=== PATIENT | female | born 1985 | race African-American/Black ===

== ENCOUNTER → 2017-01-09 | Outpatient (CLI) | payer BC ==
[2017-01-09 09:34] LABS: CLARITY URINE CLEAR (CLEAR); COLOR URINE YELLOW (YELLOW); GLUCOSE URINE NEGATIVE (NEGATIVE); KETONES URINE NEGATIVE (NEGATIVE); LEUKOCYTE ESTERASE URINE NEGATIVE (NEGATIVE); NITRITE URINE NEGATIVE (NEGATIVE); OCCULT BLOOD URINE NEGATIVE (NEGATIVE); PROTEIN URINE NEGATIVE (NEGATIVE); SPECIFIC GRAVITY URINE 1.019 (1.005-1.030); UROBILINOGEN URINE 0.2 E.U./dL (0.2-1.0)
== END | disposition home or self-care (01) ==
LOC: LAB 09:12
PROVIDERS: ATTEND Internal Medicine Geriatric Medicine
DX: N39.0 Urinary tract infection, site not specified (principal)
CPT/HCPCS: 81003; 87086

== ENCOUNTER → 2017-02-25 | Outpatient (CLI) | payer BC ==
[2017-02-25 09:58] LABS: GLUCOSE URINE NEGATIVE (NEGATIVE); KETONES URINE NEGATIVE (NEGATIVE); LEUKOCYTE ESTERASE URINE NEGATIVE (NEGATIVE); NITRITE URINE NEGATIVE (NEGATIVE); OCCULT BLOOD URINE NEGATIVE (NEGATIVE); PH URINE 7.5 (4.5-8.0); PROTEIN URINE NEGATIVE (NEGATIVE); SPECIFIC GRAVITY URINE 1.001 (1.005-1.030); UROBILINOGEN URINE 0.2 E.U./dL (0.2-1.0)
[2017-02-25 10:05] LABS: CLARITY URINE CLEAR (CLEAR); COLOR URINE STRAW (YELLOW)
== END | disposition home or self-care (01) ==
LOC: LAB 07:58
PROVIDERS: ATTEND Internal Medicine Geriatric Medicine
DX: N39.0 Urinary tract infection, site not specified (principal)
CPT/HCPCS: 81003; 87086

== ENCOUNTER → 2017-04-18 | Outpatient (CLI) | payer BC ==
[2017-04-18 11:59] LABS: BASOPHILS % 0.6 % (0.0-2.0); EOSINOPHILS % 1.1 % (0.0-5.0); HEMATOCRIT. 34.4 % (36.0-48.0); HEMOGLOBIN. 11.6 g/dL (12.0-16.0); LYMPHOCYTES % 42.4 % (20.0-50.0); MEAN CORPUSCULAR HEMOGLOBIN 27.1 pg (28.0-32.0); MEAN CORPUSCULAR VOLUME 80.7 fL (81.0-99.0); MEAN PLATELET VOLUME 9.4 fl (7.4-10.4); MONOCYTES % 8.1 % (2.0-8.0); NEUTROPHILS % 47.8 % (40.0-76.0); PLATELET 234 x1000/uL (130-400); RED BLOOD CELL COUNT 4.26 mill/uL (4.2-5.4); RED CELL DISTRIBUTION WIDTH 15.8 % (11.6-14.6)
[2017-04-18 12:05] LABS: B-HCG QUANTITATIVE < 1 mIU/mL (<3)
[2017-04-18 13:47] LABS: FERRITIN 14 ng/mL (10-291)
[2017-04-18 13:56] LABS: RUBELLA IGG 154.8 IU/mL (4.99-10)
[2017-04-18 13:58] LABS: HEPATITIS B SURFACE ANTIGEN NEGATIVE
[2017-04-18 14:25] LABS: HEPATITIS B CORE AB IGM NEGATIVE
[2017-04-18 14:27] LABS: HEPATITIS A AB IGM NEGATIVE (NEGATIVE)
== END | disposition home or self-care (01) ==
LOC: LAB 11:11
PROVIDERS: ATTEND Internal Medicine Geriatric Medicine
DX: R73.9 Hyperglycemia, unspecified (principal)
CPT/HCPCS: 82728; 82947; 83036; 84702; 85025; 85651; 86592; 86705; 86709; 86762; 86803; 86850; 86900; 87340

== ENCOUNTER → 2017-05-02 | Outpatient (CLI) | payer BC ==
[2017-05-02 09:14] LABS: T4 FREE 1.13 ng/dL (0.76-1.46)
[2017-05-03 17:58] LABS: HBSAG SCREEN Negative (Negative)
[2017-05-04 13:06] LABS: VITAMIN D 25-OH 19.8 ng/mL (30.0-100.0)
== END | disposition home or self-care (01) ==
LOC: LAB 08:00
PROVIDERS: ATTEND Internal Medicine Geriatric Medicine
DX: R73.9 Hyperglycemia, unspecified (principal)
CPT/HCPCS: 36415; 82306; 83520; 84439; 84443; 86790; 87186; 87340

== ENCOUNTER → 2017-07-17 | Outpatient (CLI) | payer BC ==
[2017-07-17 10:51] LABS: HCG SCREEN NEGATIVE
== END | disposition home or self-care (01) ==
LOC: LAB 09:59
PROVIDERS: ATTEND Internal Medicine Geriatric Medicine
DX: Z32.00 Encounter for pregnancy test, result unknown (principal)
CPT/HCPCS: 36415; 84702; 84703

== ENCOUNTER → 2018-01-13 | Outpatient (CLI) | payer BC ==
[2018-01-13 11:58] LABS: BASOPHILS % 0.3 % (0.0-2.0); EOSINOPHILS % 0.2 % (0.0-5.0); HEMATOCRIT. 36.2 % (36.0-48.0); HEMOGLOBIN. 12.1 g/dL (12.0-16.0); LYMPHOCYTES % 16.5 % (20.0-50.0); MEAN CORPUSCULAR HEMOGLOBIN 27.9 pg (28.0-32.0); MEAN CORPUSCULAR VOLUME 83.5 fL (81.0-99.0); MEAN PLATELET VOLUME 8.1 fl (7.4-10.4); MONOCYTES % 7.5 % (2.0-8.0); NEUTROPHILS % 75.5 % (40.0-76.0); PLATELET 335 x1000/uL (130-400); RED BLOOD CELL COUNT 4.34 mill/uL (4.2-5.4)
[2018-01-13 12:39] LABS: T4 FREE 1.25 ng/dL (0.76-1.46)
== END | disposition home or self-care (01) ==
LOC: LAB 11:04
PROVIDERS: ATTEND Internal Medicine Geriatric Medicine
DX: E03.9 Hypothyroidism, unspecified (principal); R03.0 Elevated blood-pressure reading, without diagnosis of hypertension
CPT/HCPCS: 36415; 83540; 83550; 84439; 84443; 84480; 85025

== ENCOUNTER → 2018-01-15 | Outpatient (CLI) | payer BC | END | disposition home or self-care (01) | LOC: CARD 08:27 | PROVIDERS: ATTEND Internal Medicine Geriatric Medicine | DX: R00.0 Tachycardia, unspecified (principal); R00.2 Palpitations | CPT/HCPCS: 93225; 93306 ==

== ENCOUNTER → 2018-03-04 | Outpatient (CLI) | payer BC ==
[2018-03-04 14:09] LABS: BASOPHILS % 0.4 % (0.0-2.0); EOSINOPHILS % 1.7 % (0.0-5.0); HEMATOCRIT. 32.9 % (36.0-48.0); HEMOGLOBIN. 11.5 g/dL (12.0-16.0); LYMPHOCYTES % 20.8 % (20.0-50.0); MEAN CORPUSCULAR HEMOGLOBIN 29.5 pg (28.0-32.0); MEAN CORPUSCULAR VOLUME 84.6 fL (81.0-99.0); MEAN PLATELET VOLUME 8.7 fl (7.4-10.4); NEUTROPHILS % 68.1 % (40.0-76.0); PLATELET 269 x1000/uL (130-400); RED BLOOD CELL COUNT 3.89 mill/uL (4.2-5.4); RED CELL DISTRIBUTION WIDTH 13.9 % (11.6-14.6)
[2018-03-04 14:15] LABS: CLARITY URINE CLOUDY (CLEAR); COLOR URINE YELLOW (YELLOW); KETONES URINE NEGATIVE (NEGATIVE); LEUKOCYTE ESTERASE URINE NEGATIVE (NEGATIVE); NITRITE URINE NEGATIVE (NEGATIVE); OCCULT BLOOD URINE NEGATIVE (NEGATIVE); PH URINE 7.5 (4.5-8.0); PROTEIN URINE NEGATIVE (NEGATIVE); SPECIFIC GRAVITY URINE 1.014 (1.005-1.030); UROBILINOGEN URINE 0.2 E.U./dL (0.2-1.0)
[2018-03-04 14:29] LABS: T4 FREE 1.13 ng/dL (0.76-1.46)
[2018-03-04 14:57] LABS: HEPATITIS B SURFACE ANTIGEN NEGATIVE; RUBELLA IGG 220.5 IU/mL (4.99-10)
[2018-03-09 13:12] LABS: HGB A 97.4 % (96.4-98.8); HGB A2 2.6 % (1.8-3.2); HGB SOLUBILITY Negative (Negative)
== END | disposition home or self-care (01) ==
LOC: LAB 12:58
PROVIDERS: ATTEND Obstetrics & Gynecology Obstetrics
DX: Z34.00 Encounter for supervision of normal first pregnancy, unspecified trimester (principal); Z3A.00 Weeks of gestation of pregnancy not specified; R79.89 Other specified abnormal findings of blood chemistry
CPT/HCPCS: 36415; 81003; 82947; 83021; 83036; 84439; 84443; 85025; 85660; 86592; 86762; 86803; 86850; 86900; 87186; 87340

== ENCOUNTER 2018-09-14 07:14 | Inpatient (IN) | payer BC ==
[~2018-09-14] VITALS: Ht 193 cm; Wt 79.8 kg
[2018-09-14] VITALS (15 sets, daily range): BP systolic 130–169; BP diastolic 57–104
[2018-09-14] MEDS: LACTATED RINGERS 1,000 ML IV SCH ×3 (07:05→09:40)
[2018-09-14] MEDS ORDERED: DEXT 5%/LR + PITOCIN 20UNITS/L 1,000 ML IV SCH (07:26)
[2018-09-14] MEDS ORDERED: METHYLERGONOVINE MALEATE 0.2 MG/ML IM PRN ×2 (07:30→20:00)
[2018-09-14] MEDS ORDERED: MISOPROSTOL 200MCG TABLET ONE (07:30)
[2018-09-14] MEDS ORDERED: CARBOPROST TROMETHAMINE 250 MCG/ML AMPUL IM PRN (07:30)
[2018-09-14] MEDS ORDERED: LIDOCAINE HCL/PF 1% 10 MG/ML 5ML VIAL ONE ×2 (08:07→12:07)
[2018-09-14] MEDS ORDERED: BUTORPHANOL TARTRATE 2 MG/ML VIAL ONE (08:24)
[2018-09-14 08:49] LABS: BASOPHILS % 0.2 % (0.0-2.0); EOSINOPHILS % 0.1 % (0.0-5.0); HEMATOCRIT. 28.8 % (36.0-48.0); HEMOGLOBIN. 9.9 g/dL (12.0-16.0); LYMPHOCYTES % 12.9 % (20.0-50.0); MEAN CORPUSCULAR HEMOGLOBIN 31.5 pg (28.0-32.0); MEAN CORPUSCULAR VOLUME 91.1 fL (81.0-99.0); MEAN PLATELET VOLUME 10.4 fl (7.4-10.4); MONOCYTES % 6.8 % (2.0-8.0); PLATELET 108 x1000/uL (130-400); RED BLOOD CELL COUNT 3.16 mill/uL (4.2-5.4); RED CELL DISTRIBUTION WIDTH 14.2 % (11.6-14.6)
[2018-09-14 09:02] LABS: FIBRINOGEN 151 mg/dL (200-400); INR 1.1; PARTIAL THROMBOPLASTIN TIME 27.4 sec (23.4-31.0); PROTHROMBIN TIME 10.9 sec (9.1-11.1)
[2018-09-14 09:04] LABS: CHLORIDE 107 mEq/L (98-107)
[2018-09-14 09:29] LABS: D-DIMER > 38.20 mg/L FEU (<0.50)
[2018-09-14] MEDS ORDERED: SODIUM CHLORIDE 0.9% 1,000 ML IV SCH (10:15)
[2018-09-14] MEDS: BUTORPHANOL TARTRATE 2 MG/ML VIAL IV PRN ×2 (10:21→13:35)
[2018-09-14] MEDS ORDERED: HYDROMORPHONE HCL/PF 2MG/ML CPJ IV PRN (12:00)
[2018-09-14] MEDS ORDERED: PROPOFOL 200MG/20ML VIAL IV ONE ×2 (12:06→17:14)
[2018-09-14] MEDS ORDERED: SUCCINYLCHOLINE CHLORIDE 200MG/10ML IV ONE ×2 (12:09→17:15)
[2018-09-14] MEDS ORDERED: ROCURONIUM BROMIDE 10MG/ML VIAL 5ML IV ONE ×3 (12:10→18:14)
[2018-09-14 12:11] LABS: CLARITY URINE CLEAR (CLEAR); COLOR URINE YELLOW (YELLOW); KETONES URINE NEGATIVE (NEGATIVE); LEUKOCYTE ESTERASE URINE NEGATIVE (NEGATIVE); NITRITE URINE NEGATIVE (NEGATIVE); OCCULT BLOOD URINE 3+ (NEGATIVE); PH URINE 5.5 (4.5-8.0); PROTEIN URINE 1+ (NEGATIVE); SPECIFIC GRAVITY URINE 1.019 (1.005-1.030); UROBILINOGEN URINE 0.2 E.U./dL (0.2-1.0)
[2018-09-14] MEDS ORDERED: PHENYLEPHRINE HCL 10 MG/ML 1ML (IV VIAL) IV ONE ×2 (12:11→17:34)
[2018-09-14] MEDS ORDERED: FENTANYL CITRATE/PF 50MCG/ML 2ML VIAL ONE ×2 (12:14→17:14)
[2018-09-14 12:26] LABS: HEPATITIS B SURFACE ANTIGEN NEGATIVE
[2018-09-14 12:52] LABS: HEMOGLOBIN. 11.4 g/dL (12.0-16.0); MEAN CORPUSCULAR HEMOGLOBIN 30.8 pg (28.0-32.0); MEAN CORPUSCULAR VOLUME 89.3 fL (81.0-99.0); MEAN PLATELET VOLUME 9.8 fl (7.4-10.4); PLATELET 92 x1000/uL (130-400); RED BLOOD CELL COUNT 3.69 mill/uL (4.2-5.4); RED CELL DISTRIBUTION WIDTH 14.2 % (11.6-14.6)
[2018-09-14 12:56] LABS: *AMPHETAMINES SCREEN URINE NEGATIVE (NEGATIVE); *BARBITURATES SCREEN URINE NEGATIVE (NEGATIVE); *BENZODIAZEPINES SCREEN URINE NEGATIVE (NEGATIVE)
[2018-09-14 12:58] LABS: *COCAINE SCREEN URINE NEGATIVE (NEGATIVE); CANNABINOID URINE SCREEN NEGATIVE (NEGATIVE); METHADONE URINE SCREEN NEGATIVE (NEGATIVE); OPIATES URINE SCREEN NEGATIVE (NEGATIVE); PHENCYCLIDINE URINE SCREEN NEGATIVE (NEGATIVE)
[2018-09-14 13:00] LABS: FIBRINOGEN 127 mg/dL (200-400); INR 1.1; PARTIAL THROMBOPLASTIN TIME 31.1 sec (23.4-31.0); PROTHROMBIN TIME 11.3 sec (9.1-11.1)
[2018-09-14 13:26] LABS: D-DIMER > 35.20 mg/L FEU (<0.50)
[2018-09-14 13:56] LABS: PLATELET ESTIMATE SLIGHTLY DECREASED
[2018-09-14] MEDS: HYDROMORPHONE HCL/PF 2MG/ML CPJ IV PRN ×4 (14:34→20:48)
[2018-09-14] MEDS ORDERED: OXYTOCIN 10 UNITS/ML 1ML ONE (15:43)
[2018-09-14] MEDS ORDERED: NON FORMULARY PATIENT HOME MED EA XX SCH ×2 (16:00→19:15)
[2018-09-14] MEDS ORDERED: LIDOCAINE HCL 1% 20ML VIAL (Pyxis) INJ ONE ×3 (16:28→23:26)
[2018-09-14] MEDS ORDERED: SODIUM CHLORIDE 0.9% IV ONE (17:00)
[2018-09-14] MEDS ORDERED: OXYTOCIN IV ONE (17:00)
[2018-09-14] MEDS ORDERED: CEFAZOLIN SODIUM 1000MG/VIAL ONE (17:34)
[2018-09-14] MEDS ORDERED: MIDAZOLAM HCL 2 MG/2 ML VIAL ONE (17:39)
[2018-09-14] MEDS ORDERED: CALCIUM GLUCONATE 100MG/ML 10ML VIAL IV NR (18:05)
[2018-09-14] MEDS ORDERED: POVIDONE-IODINE OINT 28.4GM TOP ONE ×2 (18:39→18:47)
[2018-09-14] MEDS ORDERED: NEOSTIGMINE METHYLSULFATE 1MG/ML 10 ML VIAL ONE (18:43)
[2018-09-14] MEDS ORDERED: GLYCOPYRROLATE 0.2 MG/ML 2ML VIAL ONE (18:43)
[2018-09-14] MEDS ORDERED: DEXT 5%/LACTATED RINGERS 1,000 ML IV SCH (19:26)
[2018-09-14] MEDS ORDERED: ONDANSETRON HCL 4MG/2ML INJ IV PRN (20:00)
[2018-09-14 20:09] LABS: HEMATOCRIT. 27.4 % (36.0-48.0); HEMOGLOBIN. 9.1 g/dL (12.0-16.0); MEAN CORPUSCULAR HEMOGLOBIN 30.4 pg (28.0-32.0); MEAN CORPUSCULAR VOLUME 91.2 fL (81.0-99.0); MEAN PLATELET VOLUME 8.3 fl (7.4-10.4); PLATELET 55 x1000/uL (130-400); RED CELL DISTRIBUTION WIDTH 14.8 % (11.6-14.6)
[2018-09-14 20:47] LABS: PLATELET ESTIMATE DECREASED
[2018-09-14 22:30] LABS: HEMOGLOBIN 9.8 g/dL (12.0-16.0)
[2018-09-14 23:00] LABS: FIBRINOGEN 103 mg/dL (200-400); INR 1.2; PARTIAL THROMBOPLASTIN TIME 36.4 sec (23.4-31.0); PROTHROMBIN TIME 12.5 sec (9.1-11.1)
[2018-09-14] MEDS ORDERED: IOHEXOL-300 100 ML BOTTLE ONE (23:26)
[2018-09-14 23:27] LABS: D-DIMER > 35.20 mg/L FEU (<0.50)
[2018-09-14] MEDS ORDERED: GELATIN SPONGE,ABSORBABLE 12-7MM SPONGE ONE (23:48)
[2018-09-15] VITALS (79 sets, daily range): BP systolic 100–148; BP diastolic 24–90
[2018-09-15] MEDS ORDERED: GELATIN SPONGE,ABSORBABLE 12-7MM SPONGE ONE ×2 (00:29→00:41)
[2018-09-15] MEDS ORDERED: HYDROMORPHONE HCL/PF 2MG/ML CPJ ONE (00:54)
[2018-09-15] MEDS ORDERED: HYDROMORPHONE HCL/PF 2MG/ML CPJ IV SCH (01:22)
[2018-09-15] MEDS: HYDROMORPHONE HCL/PF 2MG/ML CPJ IV PRN (03:10)
[2018-09-15] MEDS: DEXT 5%/LACTATED RINGERS 1,000 ML IV SCH ×3 (03:11→20:00)
[2018-09-15 05:57] LABS: INR 1.1; PARTIAL THROMBOPLASTIN TIME 34.3 sec (23.4-31.0); PROTHROMBIN TIME 11.2 sec (9.1-11.1)
[2018-09-15 05:57] LABS: MEAN CORPUSCULAR HEMOGLOBIN 30.1 pg (28.0-32.0); MEAN PLATELET VOLUME 8.5 fl (7.4-10.4); PLATELET 106 x1000/uL (130-400); RED CELL DISTRIBUTION WIDTH 14.9 % (11.6-14.6)
[2018-09-15 06:40] LABS: HEMOGLOBIN. 6.6 g/dL (12.0-16.0)
[2018-09-15 06:41] LABS: HEMATOCRIT. 19.4 % (36.0-48.0)
[2018-09-15] MEDS: PANTOPRAZOLE SODIUM 40 MG/VIAL IV SCH (08:34)
[2018-09-15] MEDS: TRAMADOL HCL/ACETAMINOPHEN 37.5/325MG TABLET PO PRN ×3 (08:34→23:07)
[2018-09-15 09:16] LABS: PLATELET ESTIMATE SLIGHTLY DECREASED
[2018-09-15] MEDS: PIPERACILLIN/TAZ 3.375G PREMIX 50 ML IV SCH ×3 (11:32→21:47)
[2018-09-15] MEDS ORDERED: HYDROMORPHONE HCL/PF 2MG/ML CPJ IV ONE (12:50)
[2018-09-15 19:42] LABS: HEMATOCRIT. 22.2 % (36.0-48.0); HEMOGLOBIN. 7.6 g/dL (12.0-16.0); MEAN CORPUSCULAR HEMOGLOBIN 29.5 pg (28.0-32.0); MEAN CORPUSCULAR VOLUME 86.6 fL (81.0-99.0); MEAN PLATELET VOLUME 8.2 fl (7.4-10.4); PLATELET 87 x1000/uL (130-400); RED BLOOD CELL COUNT 2.57 mill/uL (4.2-5.4); RED CELL DISTRIBUTION WIDTH 14.8 % (11.6-14.6)
[2018-09-15 19:59] LABS: PLATELET ESTIMATE DECREASED
[2018-09-15] MEDS ORDERED: TRANEXAMIC ACID 1,000 MG/10 ML IV ONE (20:30)
[2018-09-15 20:56] LABS: PARTIAL THROMBOPLASTIN TIME 30.1 sec (23.4-31.0); PROTHROMBIN TIME 10.4 sec (9.1-11.1)
[2018-09-15] MEDS ORDERED: TRANEXAMIC ACID 1,000 MG in SODIUM CHLORIDE 0.9% 100 ML IV NR (21:00)
[2018-09-16] VITALS (77 sets, daily range): BP systolic 106–173; BP diastolic 51–110
[2018-09-16] MEDS: PIPERACILLIN/TAZ 3.375G PREMIX 50 ML IV SCH ×4 (03:37→20:55)
[2018-09-16] MEDS: TRAMADOL HCL/ACETAMINOPHEN 37.5/325MG TABLET PO PRN ×3 (07:41→23:15)
[2018-09-16] MEDS: PANTOPRAZOLE SODIUM 40 MG/VIAL IV SCH (09:30)
[2018-09-16 09:40] LABS: HEMATOCRIT. 26.7 % (36.0-48.0); HEMOGLOBIN. 9.3 g/dL (12.0-16.0); MEAN CORPUSCULAR VOLUME 83.3 fL (81.0-99.0); MEAN PLATELET VOLUME 9.2 fl (7.4-10.4); PLATELET 74 x1000/uL (130-400); RED CELL DISTRIBUTION WIDTH 18.4 % (11.6-14.6)
[2018-09-16 09:53] LABS: D-DIMER 1.08 mg/L FEU (<0.50); PARTIAL THROMBOPLASTIN TIME 30.3 sec (23.4-31.0)
[2018-09-16 12:18] LABS: PLATELET ESTIMATE MARKEDLY DECREASED
[2018-09-16 12:25] LABS: CHLORIDE 108 mEq/L (98-107)
[2018-09-16] MEDS: MORPHINE SULFATE 4 MG/ML CPJ (NOT FOR IM USE) IV PRN (12:59)
[2018-09-16] MEDS: DOCUSATE SODIUM 250MG CAPSULE PO SCH (13:07)
[2018-09-16] MEDS ORDERED: FUROSEMIDE 40MG/4ML VIAL IVP NR (17:30)
[2018-09-16] MEDS ORDERED: POTASSIUM CHLORIDE 10MEQ TABLET SR PO NR (19:00)
[2018-09-17] VITALS (41 sets, daily range): BP systolic 122–174; BP diastolic 68–104
[2018-09-17] MEDS: PIPERACILLIN/TAZ 3.375G PREMIX 50 ML IV SCH ×2 (03:15→09:27)
[2018-09-17] MEDS: TRAMADOL HCL/ACETAMINOPHEN 37.5/325MG TABLET PO PRN (05:31)
[2018-09-17] MEDS ORDERED: FUROSEMIDE 40MG/4ML VIAL IVP SCH (08:15)
[2018-09-17] MEDS ORDERED: VANCOMYCIN 1 G PREMIX 200 ML IV SCH (08:15)
[2018-09-17] MEDS ORDERED: LACTULOSE 20G/30ML UDC PO PRN (08:30)
[2018-09-17] MEDS ORDERED: SENNOSIDES/DOCUSATE SOD 8.6/50MG TABLET PO PRN (08:30)
[2018-09-17] MEDS ORDERED: LOSARTAN POTASSIUM 25 MG TABLET PO SCH (09:00)
[2018-09-17] MEDS: PANTOPRAZOLE SODIUM 40 MG/VIAL IV SCH (09:10)
[2018-09-17] MEDS: HYDROCODONE/ACETAMINOPHEN 5/325MG TABLET PO PRN ×2 (09:11→19:47)
[2018-09-17] MEDS: DOCUSATE SODIUM 250MG CAPSULE PO SCH (09:11)
[2018-09-17] MEDS: IPRATROPIUM/ALBUTEROL 0.5-3(2.5)MG/3ML NEB HHN SCH ×5 (09:19→23:48)
[2018-09-17] MEDS ORDERED: POTASSIUM CHLORIDE 10MEQ TABLET SR PO SCH (09:30)
[2018-09-17 09:31] LABS: BASOPHILS % 0.2 % (0.0-2.0); EOSINOPHILS % 0.4 % (0.0-5.0); HEMATOCRIT. 28.4 % (36.0-48.0); HEMOGLOBIN. 9.8 g/dL (12.0-16.0); LYMPHOCYTES % 7.6 % (20.0-50.0); MEAN CORPUSCULAR HEMOGLOBIN 28.9 pg (28.0-32.0); MEAN CORPUSCULAR VOLUME 83.5 fL (81.0-99.0); MEAN PLATELET VOLUME 9.5 fl (7.4-10.4); MONOCYTES % 7.7 % (2.0-8.0); NEUTROPHILS % 84.1 % (40.0-76.0); PLATELET 129 x1000/uL (130-400); RED CELL DISTRIBUTION WIDTH 18.8 % (11.6-14.6)
[2018-09-17 09:49] LABS: CHLORIDE 104 mEq/L (98-107)
[2018-09-17] MEDS ORDERED: VANCOMYCIN 1500MG in DEXTROSE 5% WATER 250ML IV SCH (10:00)
[2018-09-17] MEDS ORDERED: PANTOPRAZOLE SODIUM 40 MG/VIAL IV SCH (13:30)
[2018-09-17] MEDS: METRONIDAZOLE 500MG TABLET PO SCH ×2 (13:58→20:45)
[2018-09-17] MEDS ORDERED: LACTOBACILLUS GG CAPSULE PO NR (14:15)
[2018-09-17] MEDS: MORPHINE SULFATE 4 MG/ML CPJ (NOT FOR IM USE) IV PRN (15:15)
[2018-09-17] MEDS ORDERED: NA PHOS,M-B/NA PHOS,DI-BA ENEMA 118ML PR NR (15:30)
[2018-09-17] MEDS: CEFEPIME 1,000 MG in DEXTROSE 5% WATER 50 ML IV SCH (16:21)
[2018-09-17] MEDS ORDERED: VANCOMYCIN 1250MG in DEXTROSE 5% WATER 250ML IV SCH (18:00)
[2018-09-18] VITALS (37 sets, daily range): BP systolic 117–170; BP diastolic 75–99
[2018-09-18] MEDS: MORPHINE SULFATE 4 MG/ML CPJ (NOT FOR IM USE) IV PRN ×2 (00:23→06:44)
[2018-09-18] MEDS: IPRATROPIUM/ALBUTEROL 0.5-3(2.5)MG/3ML NEB HHN SCH ×5 (03:57→20:13)
[2018-09-18] MEDS: CEFEPIME 1,000 MG in DEXTROSE 5% WATER 50 ML IV SCH ×2 (05:12→17:52)
[2018-09-18 05:34] LABS: BASOPHILS % 0.2 % (0.0-2.0); EOSINOPHILS % 0.8 % (0.0-5.0); HEMATOCRIT. 29.9 % (36.0-48.0); LYMPHOCYTES % 10.5 % (20.0-50.0); MEAN CORPUSCULAR HEMOGLOBIN 28.4 pg (28.0-32.0); MEAN CORPUSCULAR VOLUME 84.5 fL (81.0-99.0); MEAN PLATELET VOLUME 9.1 fl (7.4-10.4); MONOCYTES % 9.2 % (2.0-8.0); NEUTROPHILS % 79.3 % (40.0-76.0); PLATELET 150 x1000/uL (130-400); RED BLOOD CELL COUNT 3.54 mill/uL (4.2-5.4); RED CELL DISTRIBUTION WIDTH 18.4 % (11.6-14.6)
[2018-09-18 06:09] LABS: CHLORIDE 102 mEq/L (98-107)
[2018-09-18] MEDS: METRONIDAZOLE 500MG TABLET PO SCH ×2 (08:33→20:18)
[2018-09-18] MEDS: PANTOPRAZOLE SODIUM 40 MG/VIAL IV SCH (08:33)
[2018-09-18] MEDS: TRAMADOL HCL/ACETAMINOPHEN 37.5/325MG TABLET PO PRN (08:33)
[2018-09-18] MEDS: LOSARTAN POTASSIUM 50 MG TABLET PO SCH (08:33)
[2018-09-18] MEDS: LACTOBACILLUS GG CAPSULE PO SCH (08:33)
[2018-09-18] MEDS: DOCUSATE SODIUM 250MG CAPSULE PO SCH (08:51)
[2018-09-18] MEDS ORDERED: PANTOPRAZOLE SODIUM 40 MG/VIAL IV SCH (09:00)
[2018-09-19] VITALS (10 sets, daily range): BP systolic 120–175; BP diastolic 77–101
[2018-09-19] MEDS: IPRATROPIUM/ALBUTEROL 0.5-3(2.5)MG/3ML NEB HHN SCH ×6 (00:02→21:47)
[2018-09-19] MEDS: CEFEPIME 1,000 MG in DEXTROSE 5% WATER 50 ML IV SCH ×2 (05:10→18:31)
[2018-09-19] MEDS: TRAMADOL HCL/ACETAMINOPHEN 37.5/325MG TABLET PO PRN ×2 (05:11→21:53)
[2018-09-19 05:57] LABS: BASOPHILS % 0.2 % (0.0-2.0); EOSINOPHILS % 1.3 % (0.0-5.0); HEMATOCRIT. 31.3 % (36.0-48.0); HEMOGLOBIN. 10.5 g/dL (12.0-16.0); LYMPHOCYTES % 9.6 % (20.0-50.0); MEAN CORPUSCULAR HEMOGLOBIN 28.4 pg (28.0-32.0); MEAN CORPUSCULAR VOLUME 84.6 fL (81.0-99.0); MEAN PLATELET VOLUME 8.9 fl (7.4-10.4); MONOCYTES % 11.4 % (2.0-8.0); NEUTROPHILS % 77.5 % (40.0-76.0); PLATELET 189 x1000/uL (130-400); RED CELL DISTRIBUTION WIDTH 19.3 % (11.6-14.6)
[2018-09-19 06:16] LABS: CHLORIDE 104 mEq/L (98-107)
[2018-09-19] MEDS: METRONIDAZOLE 500MG TABLET PO SCH ×2 (10:35→21:52)
[2018-09-19] MEDS: LOSARTAN POTASSIUM 50 MG TABLET PO SCH (10:35)
[2018-09-19] MEDS: LACTOBACILLUS GG CAPSULE PO SCH (10:36)
[2018-09-19] MEDS: DOCUSATE SODIUM 250MG CAPSULE PO SCH (10:36)
[2018-09-20] VITALS: BP 148/76
[2018-09-20 04:00] VITALS: BP 149/69
[2018-09-20] MEDS: TRAMADOL HCL/ACETAMINOPHEN 37.5/325MG TABLET PO PRN ×2 (04:04→21:48)
[2018-09-20] MEDS: IPRATROPIUM/ALBUTEROL 0.5-3(2.5)MG/3ML NEB HHN SCH ×5 (05:29→20:00)
[2018-09-20] MEDS: CEFEPIME 1,000 MG in DEXTROSE 5% WATER 50 ML IV SCH ×2 (06:16→18:41)
[2018-09-20 07:46] LABS: CHLORIDE 104 mEq/L (98-107); HEMATOCRIT. 31.9 % (36.0-48.0); HEMOGLOBIN. 10.9 g/dL (12.0-16.0); MEAN CORPUSCULAR HEMOGLOBIN 28.6 pg (28.0-32.0); MEAN CORPUSCULAR VOLUME 83.8 fL (81.0-99.0); MEAN PLATELET VOLUME 8.6 fl (7.4-10.4); PLATELET 213 x1000/uL (130-400); RED BLOOD CELL COUNT 3.81 mill/uL (4.2-5.4); RED CELL DISTRIBUTION WIDTH 18.6 % (11.6-14.6)
[2018-09-20 08:00] VITALS: BP 126/80
[2018-09-20] MEDS ORDERED: ACETAMINOPHEN 650MG/20.3ML UDC PO PRN (09:30)
[2018-09-20] MEDS: LACTOBACILLUS GG CAPSULE PO SCH (09:49)
[2018-09-20] MEDS: DOCUSATE SODIUM 250MG CAPSULE PO SCH (09:49)
[2018-09-20] MEDS: METRONIDAZOLE 500MG TABLET PO SCH ×2 (09:49→20:54)
[2018-09-20] MEDS: LOSARTAN POTASSIUM 50 MG TABLET PO SCH (09:49)
[2018-09-20] MEDS: PANTOPRAZOLE SODIUM 40 MG/VIAL IV SCH (09:50)
[2018-09-20 12:00] VITALS: BP 137/92
[2018-09-20 13:07] LABS: NUCLEATED RED BLOOD CELLS 1 /100 WBC; PLATELET ESTIMATE NORMAL
[2018-09-20 16:00] VITALS: BP 129/81
[2018-09-20 20:00] VITALS: BP 127/86
[2018-09-20] MEDS ORDERED: HYDROCODONE/ACETAMINOPHEN 5/325MG TABLET PO PRN (21:15)
[2018-09-20] MEDS ORDERED: ACETAMINOPHEN 325MG TABLET PO PRN (21:30)
[2018-09-21] VITALS: BP 137/67
[2018-09-21] MEDS: IPRATROPIUM/ALBUTEROL 0.5-3(2.5)MG/3ML NEB HHN SCH ×2 (00:31→03:57)
[2018-09-21 04:00] VITALS: BP 130/80
[2018-09-21] MEDS: CEFEPIME 1,000 MG in DEXTROSE 5% WATER 50 ML IV SCH (05:57)
[2018-09-21 08:00] VITALS: BP 130/75
[2018-09-21] MEDS: PANTOPRAZOLE SODIUM 40 MG/VIAL IV SCH (09:26)
[2018-09-21] MEDS: TRAMADOL HCL/ACETAMINOPHEN 37.5/325MG TABLET PO PRN (09:26)
[2018-09-21] MEDS: METRONIDAZOLE 500MG TABLET PO SCH (09:27)
[2018-09-21] MEDS: LOSARTAN POTASSIUM 50 MG TABLET PO SCH (09:27)
[2018-09-21] MEDS: LACTOBACILLUS GG CAPSULE PO SCH (09:27)
[2018-09-21] MEDS: DOCUSATE SODIUM 250MG CAPSULE PO SCH (09:27)
[2018-09-21 11:01] VITALS: BP 112/61
== END 2018-09-21 12:37 | disposition home or self-care (01) | DRG 768 ==
LOC: OBSVTOIN 07:14 → L&D 07:14 → MICUNO 09-15 01:19 → MICUSO 09-15 01:51 → MICUNO 09-15 09:00 → 5WST 09-19 18:35
PROVIDERS: ADMIT Obstetrics & Gynecology Obstetrics; ATTEND Obstetrics & Gynecology Obstetrics
PROC: 10E0XZZ Delivery of Products of Conception, External Approach (ICD-10-PCS; 2018-09-14)
PROC: 0UQGXZZ Repair Vagina, External Approach (ICD-10-PCS; 2018-09-14)
PROC: 30233L1 Transfusion of Nonautologous Fresh Plasma into Peripheral Vein, Percutaneous Approach (ICD-10-PCS; 2018-09-14)
PROC: 30233N1 Transfusion of Nonautologous Red Blood Cells into Peripheral Vein, Percutaneous Approach (ICD-10-PCS; 2018-09-14)
PROC: 30233R1 Transfusion of Nonautologous Platelets into Peripheral Vein, Percutaneous Approach (ICD-10-PCS; 2018-09-14)
PROC: 30233M1 Transfusion of Nonautologous Plasma Cryoprecipitate into Peripheral Vein, Percutaneous Approach (ICD-10-PCS; 2018-09-14)
PROC: 30233K1 Transfusion of Nonautologous Frozen Plasma into Peripheral Vein, Percutaneous Approach (ICD-10-PCS; 2018-09-14)
PROC: 0KQM0ZZ Repair Perineum Muscle, Open Approach (ICD-10-PCS; principal; 2018-09-14 16:16)
PROC: 04LF3DZ Occlusion of Left Internal Iliac Artery with Intraluminal Device, Percutaneous Approach (ICD-10-PCS; 2018-09-21)
PROC: 04LE3DZ Occlusion of Right Internal Iliac Artery with Intraluminal Device, Percutaneous Approach (ICD-10-PCS; 2018-09-21)
DX: O36.4XX0 Maternal care for intrauterine death, not applicable or unspecified (principal); Z37.1 Single stillbirth; O45.93 Premature separation of placenta, unspecified, third trimester; O85 Puerperal sepsis; O88.83 Other embolism in the puerperium; J18.9 Pneumonia, unspecified organism; O71.3 Obstetric laceration of cervix; O72.1 Other immediate postpartum hemorrhage; O62.3 Precipitate labor; O70.1 Second degree perineal laceration during delivery; Z3A.38 38 weeks gestation of pregnancy; O16.5 Unspecified maternal hypertension, complicating the puerperium; D64.9 Anemia, unspecified; O90.81 Anemia of the puerperium; O90.89 Other complications of the puerperium, not elsewhere classified; R00.0 Tachycardia, unspecified; R33.9 Retention of urine, unspecified; R15.9 Full incontinence of feces; K59.00 Constipation, unspecified; O99.345 Other mental disorders complicating the puerperium; F90.9 Attention-deficit hyperactivity disorder, unspecified type; O72.3 Postpartum coagulation defects; D69.6 Thrombocytopenia, unspecified; O99.344 Other mental disorders complicating childbirth; F43.20 Adjustment disorder, unspecified; O99.52 Diseases of the respiratory system complicating childbirth
CPT/HCPCS: 36415; 71045; 75774; 75898; 76805; 76937; 80048; 80305; 84550; 85014; 85018; 85379; 85384; 86592; 86703; 86762; 86850; 86900; 86920; 86927; 86945; 87340; 88307; 93005; 93306; 93970; 94640; 97116; 97162; 97530; C1725; C1730; C1760; C1769; C9113; G0378; J0330; J0595; J0610; J0690; J0692; J1170; J1644; J1940; J2250; J2270; J2370; J2543; J2590; J2704; J2710; J3010; J3370; J3490; J7040; J7050; J7060; J7121; J7620; P9012; P9016; P9017; P9034; Q9967; A4315

== ENCOUNTER → 2018-10-08 | Outpatient (CLI) | payer BC ==
[2018-10-08 12:02] LABS: HEMATOCRIT. 43.2 % (36.0-48.0); HEMOGLOBIN. 14.2 g/dL (12.0-16.0); MEAN CORPUSCULAR HEMOGLOBIN 28.3 pg (28.0-32.0); MEAN CORPUSCULAR VOLUME 86.1 fL (81.0-99.0); RED BLOOD CELL COUNT 5.02 mill/uL (4.2-5.4); RED CELL DISTRIBUTION WIDTH 16.2 % (11.6-14.6)
[2018-10-08 12:11] LABS: CHLORIDE 104 mEq/L (98-107)
[2018-10-08 12:17] LABS: TOTAL IRON BINDING CAPACITY 394 ug/dL (250-450)
[2018-10-08 12:44] LABS: FOLIC ACID (FOLATE) SERUM >20 ng/mL ng/mL (>5.38)
[2018-10-08 12:52] LABS: FERRITIN 45 ng/mL (10-291)
[2018-10-08 14:38] LABS: PLATELET ESTIMATE NORMAL
[2018-10-08 14:39] LABS: PLATELET 312 x1000/uL (130-400)
[2018-10-09 08:19] LABS: FOLICLE STIMULATING HORMONE 8.2 mIU/mL (.); PROLACTIN 15.6 ng/mL (4.8-23.3)
== END | disposition home or self-care (01) ==
LOC: LAB 11:09
PROVIDERS: ATTEND Internal Medicine Geriatric Medicine
DX: D50.9 Iron deficiency anemia, unspecified (principal)
CPT/HCPCS: 36415; 82670; 82728; 82746; 83001; 83540; 83550; 84146